=== PATIENT | female | born 1940 | race Caucasian/White ===

== ENCOUNTER 2017-09-17 20:17 | Inpatient (IN) | payer MEDICARE, BC ==
[~2017-09-17] VITALS: Ht 160 cm; Wt 49.4 kg
--- NOTE | 2017-09-17 23:00 | NUR ---
ADMITTED FROM [facility] ON 5150 HOLD FOR GD. CAME THE UNIT VIA GURNEY AROUND 2300 ACCOMPANIED BY 2 PARAMEDICS. PATIENT WAS PLACED IN BED COMFORTABLY. PATIENT SHOWS NO S/S OF ANY PAIN, RESPIRATION EVEN, BREATHING PATTERN NON-LABORED, NO APPARENT DISTRESS NOTED. PER HOLD PATIENT WAS BROUGHT TO ER DUE TO UNCONSOLABLE CRYING WITH INTERMITTENT AGITATION AND OUTBURST, PERIODS OF CONFUSION AND UNSTABLE MOOD. PATIENT IS UNABLE TO PROVIDE PERSONAL CARE AND FORMULATE A VIABLE FOR SELF CARE. PATIENT IS A/O X3, APPROPRIATE, THOUGHT PROCESS INTACT, CALM, COOPERATIVE, INITIATES INTERACTION. PATIENT IS WELL GROOMED, CLEAN. PATIENT IS AMBULATORY, SKIN WARM DRY AND INTACT. NO COMPLAINTS MADE AT THIS TIME, DENIES ANY PAIN. ROOM AIR SAT IS 96%. BELONGINGS WERE INVENTORIED AND CHECKED FOR CONTRABAND. PATIENT IS UNDER THE PSYCHIATRIC CARE OF DR. HAYNES AND MEDICAL CARE OF OF DR. MAY. BED LOCKED AND PLACED ON LOWEST POSITION TO MAINTAIN SAFETY. WILL CONTINUE TO MONITOR Q 15 MINS. TO MAINTAIN SAFETY.
[2017-09-17 23:30] VITALS: BP 136/87
[2017-09-17] MEDS ORDERED: MAGNESIUM HYDROXIDE 30 ML UDC PO PRN (23:30)
[2017-09-17] MEDS ORDERED: MAG HYDROX/AL HYDROX/SIMETH 30 ML UDC PO PRN (23:30)
[2017-09-17] MEDS ORDERED: FAMO20TA8 PO (23:36)
[2017-09-17] MEDS ORDERED: TIMO5SOL11 EACHEYE (23:36)
[2017-09-17] MEDS ORDERED: ATOR40TA PO (23:36)
[2017-09-17] MEDS ORDERED: BRIM5DRO3 EACHEYE (23:36)
[2017-09-17] MEDS ORDERED: CYAN10009 PO (23:36)
[2017-09-17] MEDS ORDERED: PROP60CA6 PO (23:36)
[2017-09-17] MEDS ORDERED: SENN-18 PO (23:36)
[2017-09-17] MEDS ORDERED: LATA2.5D2 EACHEYE (23:36)
[2017-09-17] MEDS ORDERED: SUCR1TAB31 PO (23:36)
--- NOTE | 2017-09-18 06:16 | NUR ---
PAGED AND SPOKE WITH DR. MAY, RE: MED RECON.
[2017-09-18] MEDS: LATANOPROST EYE DROP 0.005% 2.5 ML BOTTLE EACHEYE SCH ×2 (06:30→21:18)
[2017-09-18] MEDS ORDERED: PROPRANOLOL LA 60 MG CAP.SA.24H PO SCH (07:00)
[2017-09-18] MEDS ORDERED: ATORVASTATIN 40 MG TABLET PO SCH (07:00)
[2017-09-18 07:31] LABS: ALANINE AMINOTRANSFERASE 52 U/L (12-78); ALBUMIN 2.6 g/dL (3.4-5.0); ALKALINE PHOSPHATASE 98 U/L (46-116); ASPARTATE AMINOTRANSFERASE 50 U/L (15-37); BILIRUBIN,TOTAL 0.3 mg/dL (0.2-1.0); CALCIUM, SERUM 9.1 mg/dL (8.5-10.1); CARBON DIOXIDE 26 mmol/L (21-32); CHLORIDE 105 mmol/L (98-107); CREATININE 0.7 mg/dL (0.6-1.3); GLUCOSE 94 mg/dL (74-106); POTASSIUM 4.7 mmol/L (3.5-5.1); SODIUM SERUM 137 mmol/L (136-145); TOTAL PROTEIN, SERUM 6.7 g/dL (6.4-8.2); UREA NITROGEN, BLOOD 20 mg/dL (7-18)
[2017-09-18 08:00] VITALS: BP 141/86
[2017-09-18] MEDS ORDERED: PROPRANOLOL HCL 10 MG TABLET PO SCH (08:00)
[2017-09-18 09:17] LABS: BASOPHILS % (AUTO) 0.5 % (0.0-2.0); HEMATOCRIT 39 % (33-45); HEMOGLOBIN 12.6 g/dL (11.5-14.8); LYMPHOCYTES % (AUTO) 19.2 % (20.0-44.0); MEAN CORPUSCULAR HEMOGLOBIN 29 PG (26.0-33.0); MEAN CORPUSCULAR HGB CONC 33 g/dl (31.0-36.0); MEAN CORPUSCULAR VOLUME 88 fL (82-100); MONOCYTES # (AUTO) 0.7 /CMM (0.1-1.30); MONOCYTES % (AUTO) 14.4 % (2.0-12.0); NEUTROPHILS # (AUTO) 3.1 /CMM (1.8-8.9); NEUTROPHILS % (AUTO) 59.9 % (43.0-81.0); PLATELET COUNT (AUTO) 309 /CMM (150-450); RDW COEFFICIENT OF VARIATION 19.1 (11.5-15.0); RED BLOOD CELL COUNT(AUTO) 4.37 MIL/uL (4.0-5.2); WHITE BLOOD COUNT (AUTO) 5.2 K/uL (4.3-11.0)
[2017-09-18] MEDS: SUCRALFATE 1 G TABLET PO SCH ×4 (09:30→21:19)
[2017-09-18] MEDS: BRIMONIDINE TARTRATE OPHT SOLN 5 ML BOTTLE EACHEYE SCH ×3 (09:30→16:43)
[2017-09-18] MEDS: ATORVASTATIN 40 MG TABLET PO SCH (09:30)
[2017-09-18] MEDS: SENNOSIDES 8.6 MG TABLET PO SCH (09:30)
[2017-09-18] MEDS: FAMOTIDINE (20 MG) 20 MG TABLET PO SCH (09:30)
[2017-09-18] MEDS: TIMOLOL -XE 0.5% 5 ML BOTTLE EACHEYE SCH (09:30)
[2017-09-18 09:31] LABS: CHOLESTEROL 146 mg/dL (<200); HDL CHOLESTEROL 65 mg/dL (40-60); LDL 69 mg/dL (0-99); TRIGLYCERIDES 71 mg/dL (30-150)
[2017-09-18] MEDS: PROPRANOLOL HCL 10 MG TABLET PO SCH ×2 (09:31→16:42)
[2017-09-18] MEDS: CYANOCOBALAMIN 500 MCG TABLET PO SCH (09:37)
[2017-09-18] MEDS: ARIPIPRAZOLE 2 MG TABLET PO SCH (14:07)
--- NOTE | 2017-09-18 15:15 | NUR ---
GPS/RN PT HAD DIARRHEA EPISODE. DR DAY CALLED FOR THE ORDERS. ORDERS RECEIVED AND CARRIED OUT. Addendum: 09/18/17 at 1734 by FÁTIMA WATSON RN DOCUMENTED ON WRONG PATIENT
[2017-09-18] MEDS ORDERED: LOPERAMIDE HCL (2 MG CAP) 2 MG CAPSULE PO PRN (15:30)
[2017-09-18 16:00] VITALS: BP 105/63
[2017-09-18 20:13] VITALS: BP 107/72
[2017-09-18] MEDS: MIRTAZAPINE 15 MG TABLET PO SCH (21:19)
[2017-09-19 08:00] VITALS: BP 122/73
[2017-09-19] MEDS: FAMOTIDINE (20 MG) 20 MG TABLET PO SCH (08:34)
[2017-09-19] MEDS: CYANOCOBALAMIN 500 MCG TABLET PO SCH (08:34)
[2017-09-19] MEDS: SUCRALFATE 1 G TABLET PO SCH ×4 (08:34→21:39)
[2017-09-19] MEDS: PROPRANOLOL HCL 10 MG TABLET PO SCH ×2 (08:34→16:31)
[2017-09-19] MEDS: ARIPIPRAZOLE 2 MG TABLET PO SCH (08:34)
[2017-09-19] MEDS: SENNOSIDES 8.6 MG TABLET PO SCH (08:34)
[2017-09-19] MEDS: TIMOLOL -XE 0.5% 5 ML BOTTLE EACHEYE SCH (09:02)
[2017-09-19] MEDS: BRIMONIDINE TARTRATE OPHT SOLN 5 ML BOTTLE EACHEYE SCH ×3 (09:02→17:23)
[2017-09-19 16:00] VITALS: BP 131/73
--- NOTE | 2017-09-19 19:50 | NUR ---
GPS RN OPENING NOTE Patient was seen sitting up in bed with feet dangling over bedside, AAOx3, currently appears calm. Patient is breathing on RA with no SOB and no signs of acute distress. Patient has no immediate needs at this time. Bed is in the low/locked position, two side rails up, and call zarate within reach. Vitals WNL. Will continue to monitor.
[2017-09-19 20:44] VITALS: BP 112/73
[2017-09-19] MEDS: MIRTAZAPINE 15 MG TABLET PO SCH (21:39)
[2017-09-19] MEDS: LATANOPROST EYE DROP 0.005% 2.5 ML BOTTLE EACHEYE SCH (21:43)
--- NOTE | 2017-09-20 06:55 | NUR ---
GPS RN CLOSING NOTE Patient slept well overnight, but while awake patient was tearful and anxious at times. AAOx3, flat affect, worried, depressed. Patient is med compliant and cooperative with staff. Patient stable. Care has been endorsed to day shift nurse.
[2017-09-20 07:28] LABS: CALCIUM, SERUM 9.1 mg/dL (8.5-10.1); CARBON DIOXIDE 29 mmol/L (21-32); CHLORIDE 106 mmol/L (98-107); CREATININE 0.8 mg/dL (0.6-1.3); GLUCOSE 88 mg/dL (74-106); POTASSIUM 4.4 mmol/L (3.5-5.1); SODIUM SERUM 140 mmol/L (136-145); UREA NITROGEN, BLOOD 20 mg/dL (7-18)
[2017-09-20 08:00] VITALS: BP 142/85
[2017-09-20] MEDS: CYANOCOBALAMIN 500 MCG TABLET PO SCH (08:30)
[2017-09-20] MEDS: FAMOTIDINE (20 MG) 20 MG TABLET PO SCH (08:30)
[2017-09-20] MEDS: BRIMONIDINE TARTRATE OPHT SOLN 5 ML BOTTLE EACHEYE SCH ×3 (08:31→16:57)
[2017-09-20] MEDS: ARIPIPRAZOLE 2 MG TABLET PO SCH (08:31)
[2017-09-20] MEDS: SUCRALFATE 1 G TABLET PO SCH ×4 (08:31→21:49)
[2017-09-20] MEDS: ATORVASTATIN 40 MG TABLET PO SCH (08:31)
[2017-09-20] MEDS: PROPRANOLOL HCL 10 MG TABLET PO SCH ×2 (08:31→16:57)
[2017-09-20] MEDS: SENNOSIDES 8.6 MG TABLET PO SCH (08:31)
[2017-09-20] MEDS: TIMOLOL -XE 0.5% 5 ML BOTTLE EACHEYE SCH (09:23)
--- NOTE | 2017-09-20 09:52 | NUR ---
INITIAL DISCHARGE PLAN: Patient wishes to return home to [address] [place], [address]. SW attempted to contact pts [facility] [phone] to discuss discharge plan and left a voicemail for callback, However, per MD, patient's wishes for pt to return home once stable and does not want SNF placement for pt. SW will help form a safe and proper discharge in collaboration with MD and pts .
--- NOTE | 2017-09-20 10:57 | NUR ---
YONY received a phone call from pts [facility] [phone], YONY discussed discharge plan with pts who stated that once pt is stable for discharge she can return home unless MD recommends pt should be discharged to SNF. Pts has requested to speak to MD, YONY informed him that she would notify .
[2017-09-20] MEDS: ASPIRIN EC 81 MG TABLET.DR PO SCH (14:15)
[2017-09-20 16:00] VITALS: BP 134/99
[2017-09-20 20:55] VITALS: BP 112/65
[2017-09-20] MEDS: MIRTAZAPINE 15 MG TABLET PO SCH (21:49)
[2017-09-20] MEDS: LATANOPROST EYE DROP 0.005% 2.5 ML BOTTLE EACHEYE SCH (21:53)
[2017-09-21 08:00] VITALS: BP 126/76
[2017-09-21] MEDS: SENNOSIDES 8.6 MG TABLET PO SCH (08:20)
[2017-09-21] MEDS: CYANOCOBALAMIN 500 MCG TABLET PO SCH (08:20)
[2017-09-21] MEDS: ASPIRIN EC 81 MG TABLET.DR PO SCH (08:21)
[2017-09-21] MEDS: PROPRANOLOL HCL 10 MG TABLET PO SCH ×2 (08:21→16:29)
[2017-09-21] MEDS: SUCRALFATE 1 G TABLET PO SCH ×4 (08:21→21:12)
[2017-09-21] MEDS: FAMOTIDINE (20 MG) 20 MG TABLET PO SCH (08:22)
[2017-09-21] MEDS: TIMOLOL -XE 0.5% 5 ML BOTTLE EACHEYE SCH (08:26)
[2017-09-21] MEDS: BRIMONIDINE TARTRATE OPHT SOLN 5 ML BOTTLE EACHEYE SCH ×3 (08:26→16:30)
[2017-09-21] MEDS ORDERED: ARIPIPRAZOLE 2 MG TABLET PO SCH (09:00)
--- NOTE | 2017-09-21 10:06 | NUR ---
SW received a phone call from pts [facility] [phone] who wanted an update on pts treatment and wanted to come speak personally to SW. SW informed pts that she was not available to meet with him however, any questions he had she could answer over the phone. Pts is concerned that pt is not receiving medications as pt stated to him last night that she was not being given medication. SW mentioned to him that pt is given medication 3x per day and is taking them per her medical records, SW also followed up with pts nurse who confirmed pt is taking her medication. Pts was thankful for the information and wishes for pt to return home.
[2017-09-21 16:28] VITALS: BP 91/52
[2017-09-21 20:19] VITALS: BP 115/89
[2017-09-21] MEDS: MIRTAZAPINE 15 MG TABLET PO SCH (21:12)
[2017-09-21] MEDS: LATANOPROST EYE DROP 0.005% 2.5 ML BOTTLE EACHEYE SCH (21:12)
[2017-09-22 08:00] VITALS: BP 119/76
[2017-09-22] MEDS: SENNOSIDES 8.6 MG TABLET PO SCH (08:39)
[2017-09-22] MEDS: PROPRANOLOL HCL 10 MG TABLET PO SCH ×2 (08:39→16:36)
[2017-09-22] MEDS: CYANOCOBALAMIN 500 MCG TABLET PO SCH (08:39)
[2017-09-22] MEDS: ATORVASTATIN 40 MG TABLET PO SCH (08:40)
[2017-09-22] MEDS: FAMOTIDINE (20 MG) 20 MG TABLET PO SCH (08:40)
[2017-09-22] MEDS: SUCRALFATE 1 G TABLET PO SCH ×4 (08:40→21:04)
[2017-09-22] MEDS: ASPIRIN EC 81 MG TABLET.DR PO SCH (08:40)
[2017-09-22] MEDS: ARIPIPRAZOLE 5 MG TABLET PO SCH (08:40)
[2017-09-22] MEDS: BRIMONIDINE TARTRATE OPHT SOLN 5 ML BOTTLE EACHEYE SCH ×3 (08:41→16:37)
[2017-09-22] MEDS: TIMOLOL -XE 0.5% 5 ML BOTTLE EACHEYE SCH (08:42)
[2017-09-22 16:00] VITALS: BP 129/70
[2017-09-22] MEDS: clonazePAM 0.5 MG TABLET PO PRN (16:05)
[2017-09-22 20:00] VITALS: BP 105/59
[2017-09-22] MEDS: MIRTAZAPINE 15 MG TABLET PO SCH (21:04)
[2017-09-22] MEDS: LATANOPROST EYE DROP 0.005% 2.5 ML BOTTLE EACHEYE SCH (21:05)
[2017-09-23 08:00] VITALS: BP 142/95
[2017-09-23] MEDS: clonazePAM 0.5 MG TABLET PO PRN (08:34)
[2017-09-23] MEDS: SUCRALFATE 1 G TABLET PO SCH ×4 (08:35→21:52)
[2017-09-23] MEDS: ASPIRIN EC 81 MG TABLET.DR PO SCH (08:35)
[2017-09-23] MEDS: FAMOTIDINE (20 MG) 20 MG TABLET PO SCH (08:35)
[2017-09-23] MEDS: ARIPIPRAZOLE 5 MG TABLET PO SCH (08:35)
[2017-09-23] MEDS: CYANOCOBALAMIN 500 MCG TABLET PO SCH (08:35)
[2017-09-23] MEDS: TIMOLOL -XE 0.5% 5 ML BOTTLE EACHEYE SCH (08:36)
[2017-09-23] MEDS: BRIMONIDINE TARTRATE OPHT SOLN 5 ML BOTTLE EACHEYE SCH ×3 (08:36→17:10)
[2017-09-23] MEDS: PROPRANOLOL HCL 10 MG TABLET PO SCH ×2 (08:36→17:10)
[2017-09-23] MEDS: SENNOSIDES 8.6 MG TABLET PO SCH (08:36)
[2017-09-23] MEDS: ACETAMINOPHEN 325 MG TABLET PO PRN (14:07)
[2017-09-23 16:10] VITALS: BP 119/62
[2017-09-23 20:00] VITALS: BP 111/64
[2017-09-23] MEDS: MIRTAZAPINE 15 MG TABLET PO SCH (21:52)
[2017-09-23] MEDS: LATANOPROST EYE DROP 0.005% 2.5 ML BOTTLE EACHEYE SCH (21:55)
[2017-09-24 08:00] VITALS: BP 132/80
[2017-09-24] MEDS: SENNOSIDES 8.6 MG TABLET PO SCH (09:00)
[2017-09-24] MEDS: PROPRANOLOL HCL 10 MG TABLET PO SCH ×2 (09:05→16:16)
[2017-09-24] MEDS: CYANOCOBALAMIN 500 MCG TABLET PO SCH (09:05)
[2017-09-24] MEDS: FAMOTIDINE (20 MG) 20 MG TABLET PO SCH (09:05)
[2017-09-24] MEDS: ASPIRIN EC 81 MG TABLET.DR PO SCH (09:06)
[2017-09-24] MEDS: ARIPIPRAZOLE 5 MG TABLET PO SCH (09:06)
[2017-09-24] MEDS: SUCRALFATE 1 G TABLET PO SCH ×4 (09:06→20:13)
[2017-09-24] MEDS: ATORVASTATIN 40 MG TABLET PO SCH (09:06)
[2017-09-24] MEDS: TIMOLOL -XE 0.5% 5 ML BOTTLE EACHEYE SCH (09:12)
[2017-09-24] MEDS: BRIMONIDINE TARTRATE OPHT SOLN 5 ML BOTTLE EACHEYE SCH ×3 (09:12→16:17)
[2017-09-24 11:34] LABS: APPEARANCE,URINE CLEAR (CLEAR); BILIRUBIN,URINE NEGATIVE (NEGATIVE); BLOOD, URINE NEGATIVE Ery/uL (NEGATIVE); COLOR,URINE YELLOW (YELLOW); KETONES,URINE NEGATIVE (NEGATIVE); LEUKOCYTE ESTERASE ,URINE NEGATIVE (NEGATIVE); NITRITE, URINE NEGATIVE (NEGATIVE); PH,URINE 5.5 (5.0-8.0); PROTEIN,URINE NEGATIVE (NEGATIVE); UGLUCOSE 3+ mg/dL (NEGATIVE); UROBILINOGEN,URINE 0.2 EU/dL (0.2)
[2017-09-24 12:25] LABS: CLINITEST,URINE 1%
[2017-09-24 12:26] LABS: BACTERIA,URINE None seen /HPF (None Seen); RBC,URINE NONE SEEN /HPF (0-2); SQUAMOUS EPITHELIAL CELL,UR Few /HPF (None Seen); WBC,URINE NONE SEEN /HPF (0-3)
[2017-09-24] MEDS: ACETAMINOPHEN 325 MG TABLET PO PRN (16:16)
[2017-09-24 16:39] VITALS: BP 106/71
[2017-09-24 20:00] VITALS: BP 104/59
[2017-09-24] MEDS: MIRTAZAPINE 15 MG TABLET PO SCH (21:11)
[2017-09-24] MEDS: LATANOPROST EYE DROP 0.005% 2.5 ML BOTTLE EACHEYE SCH (21:12)
[2017-09-24] MEDS: TEMAZEPAM 7.5 MG CAPSULE PO PRN (21:24)
[2017-09-25 08:00] VITALS: BP 134/83
[2017-09-25] MEDS: SUCRALFATE 1 G TABLET PO SCH ×4 (08:21→21:20)
[2017-09-25] MEDS: PROPRANOLOL HCL 10 MG TABLET PO SCH ×2 (08:21→16:30)
[2017-09-25] MEDS: ARIPIPRAZOLE 5 MG TABLET PO SCH (08:21)
[2017-09-25] MEDS: SENNOSIDES 8.6 MG TABLET PO SCH (08:21)
[2017-09-25] MEDS: CYANOCOBALAMIN 500 MCG TABLET PO SCH (08:21)
[2017-09-25] MEDS: ASPIRIN EC 81 MG TABLET.DR PO SCH (08:21)
[2017-09-25] MEDS: FAMOTIDINE (20 MG) 20 MG TABLET PO SCH (08:21)
[2017-09-25] MEDS: BRIMONIDINE TARTRATE OPHT SOLN 5 ML BOTTLE EACHEYE SCH ×3 (08:23→16:43)
[2017-09-25] MEDS: TIMOLOL -XE 0.5% 5 ML BOTTLE EACHEYE SCH (08:23)
[2017-09-25 16:00] VITALS: BP 121/60
[2017-09-25 20:06] VITALS: BP 119/63
[2017-09-25] MEDS: MIRTAZAPINE 15 MG TABLET PO SCH (21:21)
[2017-09-25] MEDS: LATANOPROST EYE DROP 0.005% 2.5 ML BOTTLE EACHEYE SCH (21:22)
[2017-09-26] MEDS: ARIPIPRAZOLE 5 MG TABLET PO SCH (08:48)
[2017-09-26] MEDS: PROPRANOLOL HCL 10 MG TABLET PO SCH ×2 (08:48→16:40)
[2017-09-26] MEDS: FAMOTIDINE (20 MG) 20 MG TABLET PO SCH (08:48)
[2017-09-26 08:49] VITALS: BP 117/83
[2017-09-26] MEDS: CYANOCOBALAMIN 500 MCG TABLET PO SCH (08:49)
[2017-09-26] MEDS: ASPIRIN EC 81 MG TABLET.DR PO SCH (08:49)
[2017-09-26] MEDS: ATORVASTATIN 40 MG TABLET PO SCH (08:49)
[2017-09-26] MEDS: SUCRALFATE 1 G TABLET PO SCH ×4 (08:49→20:47)
[2017-09-26] MEDS: SENNOSIDES 8.6 MG TABLET PO SCH (08:49)
[2017-09-26] MEDS: BRIMONIDINE TARTRATE OPHT SOLN 5 ML BOTTLE EACHEYE SCH ×3 (08:50→17:00)
[2017-09-26] MEDS: TIMOLOL -XE 0.5% 5 ML BOTTLE EACHEYE SCH (08:51)
--- NOTE | 2017-09-26 10:38 | NUR ---
SW spoke with pts [facility] [phone] face to face regarding pts discharge plan. Pts mentioned to SW that he and family feels pt needs more time to stabilize and wishes for pt to be discharged to a SNF in the [place]. SW will help with SNF placement in [place] or within close distance to pts home.
--- NOTE | 2017-09-26 15:30 | NUR ---
YONY faxed SNF referral to Giancarlo international logistics coordinator at [facility] Address: [address], [place] [address] for review.
--- NOTE | 2017-09-26 15:30 | NUR ---
YONY faxed SNF referral to [facility] truck driver to [facility] Address: [address] [place] [address], [place] [address] for review.
--- NOTE | 2017-09-26 15:30 | NUR ---
YONY faxed SNf referral to call center coordinator at [facility] Address: [address], [place] [address] for review.
[2017-09-26 16:00] VITALS: BP 144/82
[2017-09-26] MEDS: clonazePAM 0.5 MG TABLET PO PRN (16:40)
[2017-09-26 19:52] VITALS: BP 122/65
[2017-09-26] MEDS: LATANOPROST EYE DROP 0.005% 2.5 ML BOTTLE EACHEYE SCH (21:03)
[2017-09-26] MEDS: MIRTAZAPINE 15 MG TABLET PO SCH (21:03)
[2017-09-27 08:00] VITALS: BP 134/80
[2017-09-27] MEDS: CYANOCOBALAMIN 500 MCG TABLET PO SCH (08:12)
[2017-09-27] MEDS: SUCRALFATE 1 G TABLET PO SCH ×4 (08:12→20:09)
[2017-09-27] MEDS: FAMOTIDINE (20 MG) 20 MG TABLET PO SCH (08:12)
[2017-09-27] MEDS: SENNOSIDES 8.6 MG TABLET PO SCH (08:12)
[2017-09-27] MEDS: ASPIRIN EC 81 MG TABLET.DR PO SCH (08:12)
[2017-09-27] MEDS: PROPRANOLOL HCL 10 MG TABLET PO SCH ×2 (08:13→16:23)
--- NOTE | 2017-09-27 08:36 | NUR ---
SW received a voicemail from Giancarlo pharmacy care coordinator at [facility] Address: [address], [place] [address] stating that pt was not accepted to facility.
--- NOTE | 2017-09-27 08:43 | NUR ---
YONY faxed SNF referral to [facility] from [facility] Address: [address], [place] [address] for review.
[2017-09-27] MEDS: TIMOLOL -XE 0.5% 5 ML BOTTLE EACHEYE SCH (08:47)
[2017-09-27] MEDS: ARIPIPRAZOLE 5 MG TABLET PO SCH (09:43)
[2017-09-27] MEDS: BRIMONIDINE TARTRATE OPHT SOLN 5 ML BOTTLE EACHEYE SCH ×3 (09:44→16:23)
--- NOTE | 2017-09-27 09:58 | NUR ---
SW received a phone call from material coordinator at [facility] Address: [address], [place] [address] stating that patient cannot be accepted due to "too many psych issues; anger outbursts and behaviors and pt not being a good fit for facility."
--- NOTE | 2017-09-27 12:43 | NUR ---
YONY faxed SNF referral to Nataly from [facility] Address: [address] [place] [phone] for review.
[2017-09-27 16:13] VITALS: BP 130/78
[2017-09-27 20:49] VITALS: BP 125/80
[2017-09-27] MEDS: MIRTAZAPINE 15 MG TABLET PO SCH (21:09)
[2017-09-27] MEDS: LATANOPROST EYE DROP 0.005% 2.5 ML BOTTLE EACHEYE SCH (21:10)
[2017-09-27] MEDS: TEMAZEPAM 7.5 MG CAPSULE PO PRN (21:26)
[2017-09-28 08:00] VITALS: BP 120/78
[2017-09-28 08:29] VITALS: BP 120/78
[2017-09-28] MEDS: PROPRANOLOL HCL 10 MG TABLET PO SCH (08:29)
[2017-09-28] MEDS: SUCRALFATE 1 G TABLET PO SCH ×2 (08:29→12:00)
[2017-09-28] MEDS: ATORVASTATIN 40 MG TABLET PO SCH (08:29)
[2017-09-28] MEDS: FAMOTIDINE (20 MG) 20 MG TABLET PO SCH (08:29)
[2017-09-28] MEDS: ASPIRIN EC 81 MG TABLET.DR PO SCH (08:29)
[2017-09-28] MEDS: CYANOCOBALAMIN 500 MCG TABLET PO SCH (08:29)
[2017-09-28] MEDS: ARIPIPRAZOLE 5 MG TABLET PO SCH (08:30)
[2017-09-28] MEDS: SENNOSIDES 8.6 MG TABLET PO SCH (08:30)
[2017-09-28] MEDS: BRIMONIDINE TARTRATE OPHT SOLN 5 ML BOTTLE EACHEYE SCH ×2 (08:33→12:01)
[2017-09-28] MEDS: TIMOLOL -XE 0.5% 5 ML BOTTLE EACHEYE SCH (08:33)
[2017-09-28] MEDS: ACETAMINOPHEN 325 MG TABLET PO PRN (11:44)
--- NOTE | 2017-09-28 14:03 | NUR ---
DISCHARGE NOTE: Pt was discharged at 1:00pm via private vehicle home to [address] [facility] [address] by [facility] [phone] who agreed with discharge plan. Pts mood was happy with congruent affect. Pt denied suicidal/homicidal ideations and denied visual/auditory hallucinations. Pts will schedule a follow up appointment with psychiatrist Dr. Bradford [address] [facility] [address] and with certified hyperbaric technician [address] Stanley [address] [facility] [address] [facility] [id number] . The multidisciplinary exitcare form was done, printed, signed, and given to the patient.
--- NOTE | 2017-09-28 14:41 | NUR ---
RN NOTE: PATIENT LEFT THE UNIT AT 1250 WITH . PATIENT IS MEDICALLY STABLE, V/S STABLE, AND HAS NO SI/HI DURING DISCHARGE. IVY GAVE DISCHARGE ORDER, DISCONTINUE HOLD, AND GAVE PRESCRIPTIONS. CORRECTIONAL OFFICER SERGEANT MADE AWARE AND AGREES WITH DISCHARGE. BELONGINGS LEFT WITH PATIENT. EXIT PAPER SIGNED AND EXPLAINED TO PATIENT AND . SKIN ASSESSMENT PICTURES IN THE CHART.
== END 2017-09-28 12:50 | disposition home or self-care (01) | DRG 885 ==
LOC: GPS 22:50
PROVIDERS: ADMIT Psychiatry & Neurology Psychiatry; ATTEND Internal Medicine
DX: F33.3 Major depressive disorder, recurrent, severe with psychotic symptoms (principal); N17.0 Acute kidney failure with tubular necrosis; G93.40 Encephalopathy, unspecified; E44.0 Moderate protein-calorie malnutrition; Z68.1 Body mass index [BMI] 19.9 or less, adult; K21.9 Gastro-esophageal reflux disease without esophagitis; G43.909 Migraine, unspecified, not intractable, without status migrainosus; Z86.73 Personal history of transient ischemic attack (TIA), and cerebral infarction without residual deficits; I10 Essential (primary) hypertension; M19.90 Unspecified osteoarthritis, unspecified site; F41.0 Panic disorder [episodic paroxysmal anxiety]; E78.5 Hyperlipidemia, unspecified; G89.29 Other chronic pain; Z86.011 Personal history of benign neoplasm of the brain; Z98.84 Bariatric surgery status; Z73.6 Limitation of activities due to disability; F32.9 Major depressive disorder, single episode, unspecified; F03.90 Unspecified dementia, unspecified severity, without behavioral disturbance, psychotic disturbance, mood disturbance, and anxiety; R90.89 Other abnormal findings on diagnostic imaging of central nervous system
CPT/HCPCS: 36415; 70450-TC; 80048-TC; 80053-TC; 80061-TC; 81000-TC; 84425; 84443-TC; 85025-TC; 87081-TC